=== PATIENT | female | born 1945 | race Caucasian/White ===

== ENCOUNTER 2021-07-13 01:11 | Emergency (ER) | payer OTHER ==
[~2021-07-13] VITALS: Ht 152.4 cm; Wt 56.7 kg
--- NOTE | 2021-07-13 01:35 | NUR ---
pt malka RA. c/o head injury. states was drinking tonight
--- NOTE | 2021-07-13 02:37 | NUR ---
cleaned laceration on top of head with NS and betadine.
[2021-07-13] MEDS ORDERED: CEphaleXIN 500 MG CAPSULE PO ONE (03:00)
[2021-07-13] MEDS ORDERED: CEPH500T PO (03:01)
[2021-07-13] MEDS ORDERED: CEphaleXIN 500 MG CAPSULE ONE (03:02)
--- NOTE | 2021-07-13 03:26 | NUR ---
Patient discharged to home in stable condition. Written and verbal after care instructions given. Patient verbalizes understanding of instructions. Stressed follow up or return to ER for worsening s/s. pt ambulated with steady gait. denies pain. AOx4. picked up by friend
[2021-07-13 03:41] VITALS: BP 139/103
== END 2021-07-13 03:43 | disposition home or self-care (01) ==
LOC: ER 01:11
DX: S01.01XA Laceration without foreign body of scalp, initial encounter (principal); W22.8XXA Striking against or struck by other objects, initial encounter; Y92.89 Other specified places as the place of occurrence of the external cause; Z79.01 Long term (current) use of anticoagulants; I10 Essential (primary) hypertension; S09.90XA Unspecified injury of head, initial encounter; F10.129 Alcohol abuse with intoxication, unspecified
CPT/HCPCS: 70450; A4663; L8699